=== PATIENT | female | born 2000 | race American Indian/Alaskan Native ===

== ENCOUNTER 2024-07-02 16:26 | Emergency (ER) | payer OTHER | END 2024-07-02 20:30 | disposition home or self-care (01) | LOC: MW.ED 16:26 | DX: S06.0X0A Concussion without loss of consciousness, initial encounter (principal); Z75.8 Other problems related to medical facilities and other health care; W22.09XA Striking against other stationary object, initial encounter; Y99.0 Civilian activity done for income or pay | CPT/HCPCS: 70450; 70450-26; 72125; 72125-26; 99284 ==